=== PATIENT | male | born 2000 | race Two or more races ===

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

== ENCOUNTER → 2023-01-25 | Emergency (ER) | payer OTHER ==
[~2023-01-25] VITALS: Ht 175.3 cm; Wt 65.8 kg
== END | disposition home or self-care (01) ==
LOC: ER 07:00
DX: N20.0 Calculus of kidney (principal); Z91.013 Allergy to seafood; Z87.442 Personal history of urinary calculi